=== PATIENT | male | born 1970 | race Caucasian/White ===

== ENCOUNTER → 2017-06-21 | Outpatient (CLI) | payer OTHER ==
[~2017-06-21] MED LIST: LORTAB 5/500 501 TAB PO
[2017-06-21 11:14] VITALS: BP 120/70
[2017-06-21 11:15] VITALS: BP 160/98
== END ==
LOC: RT 09:39 → LAB 09:39 → RT 10:00
DX: R06.02 Shortness of breath (principal); R05 Cough